=== PATIENT | female | born 1975 | race American Indian/Alaskan Native ===

== ENCOUNTER 2020-03-15 14:20 | Emergency (ER) | payer MEDICAID ==
[2020-03-15] MEDS ORDERED: ACETAMINOPHEN 325 MG TAB PO ONE (14:30)
--- NOTE | 2020-03-15 15:02 | Emergency Department Report ---
ED Fever HPI - General Chief Complaint: Fever Stated Complaint: HEADACHES, EAR PAIN, HIGH BP, COUGH Time Seen by Provider: 03/15/20 14:52 - History of Present Illness Initial Comments: Patient is a 44-year-old female who presents emergency room with complaints of URI symptoms that began 3 days ago. She has associated right temporal headache, right-sided ear pain, rhinorrhea, fever, dry cough. She states that Mucinex did help her symptoms. She denies any vomiting, diarrhea, shortness of breath, chest pain, sinus pressure. Past medical history of hypertension. No allergies to medications. Last menstrual cycle 02/28/2020. She denies any known sick contacts or recent travel. ED Review of Systems ROS: Stated complaint: HEADACHES, EAR PAIN, HIGH BP, COUGH Other details as noted in HPI Comment: All other systems reviewed and negative ED Past Medical Hx - Past Medical History Hx Hypertension: Yes - Surgical History Additional Surgical History: C SECTION X3 - Social History Smoking Status: Never Smoker Substance Use Type: None - Medications Home Medications: Home Medications Medication Instructions Recorded Confirmed Last Taken Type Albuterol Sulfate [Proventil Hfa] 6.7 gm IH TID PRN #1 hfa.aer.ad 03/15/20 Unknown Rx Butalb/Acetaminophen/Caffeine 1 cap PO Q8HR PRN #10 cap 03/15/20 Unknown Rx [Fioricet 50-300-40 mg CAP] Docusate Sodium [Colace] 100 mg PO BID #60 capsule 03/15/20 Unknown Rx Ferrous Sulfate [Ferrous Sulfate 324 mg PO BID 30 Days #60 tablet.dr 03/15/20 Unknown Rx 324 MG] predniSONE [Deltasone] 20 mg PO QDAY 5 Days #5 tab 03/15/20 Unknown Rx ED Physical Exam - General Limitations: No Limitations General appearance: alert, in no apparent distress - Head Head exam: Present: atraumatic, normocephalic - Eye Eye exam: Present: normal appearance - ENT ENT exam: Present: normal orophraynx, mucous membranes moist, TM's normal bilaterally, normal external ear exam, other (no sinus ttp of the bilateral maxillary or frontal sinuses) - Neck Neck exam: Present: normal inspection, full ROM. Absent: meningismus - Respiratory Respiratory exam: Present: normal lung sounds bilaterally. Absent: respiratory distress, wheezes, rales, rhonchi, stridor, chest wall tenderness, accessory muscle use, decreased breath sounds, prolonged expiratory - Cardiovascular Cardiovascular Exam: Present: regular rate, normal rhythm, normal heart sounds. Absent: systolic murmur, diastolic murmur, rubs, gallop - Neurological Exam Neurological exam: Present: alert, oriented X3 - Psychiatric Psychiatric exam: Present: normal affect, normal mood - Skin Skin exam: Present: warm, dry, intact ED Course Vital Signs 03/15/20 03/15/20 14:46 17:23 Temperature 102.3 F H 99.8 F H Pulse Rate 98 H 93 H Respiratory 20 20 Rate Blood Pressure 131/81 Blood Pressure 146/86 [Right] O2 Sat by Pulse 98 97 Oximetry ED Medical Decision Making - Lab Data Result diagrams: 03/15/20 15:26 03/15/20 15:26 Lab Results 03/15/20 03/15/20 03/15/20 Range/Units 15:26 15:26 15:26 WBC 4.4 L (4.5-11.0) K/mm3 RBC 4.21 (3.65-5.03) M/mm3 Hgb 7.3 L (10.1-14.3) gm/dl Hct 25.3 L (30.3-42.9) % MCV 60 L (79-97) fl MCH 17 L (28-32) pg MCHC 29 L (30-34) % RDW 21.2 H (13.2-15.2) % Plt Count 79 L (140-440) K/mm3 Lymph % (Auto) 23.6 (13.4-35.0) % [place] % (Auto) 14.4 H (0.0-7.3) % Eos % (Auto) 0.3 (0.0-4.3) % Baso % (Auto) 0.3 (0.0-1.8) % Lymph # (Auto) 1.0 L (1.2-5.4) K/mm3 [place] # (Auto) 0.6 (0.0-0.8) K/mm3 Eos # (Auto) 0.0 (0.0-0.4) K/mm3 Baso # (Auto) 0.0 (0.0-0.1) K/mm3 Seg Neutrophils % 61.4 (40.0-70.0) % Seg Neutrophils # 2.7 (1.8-7.7) K/mm3 Sodium 136 L (137-145) mmol/L Potassium 3.6 (3.6-5.0) mmol/L Chloride 104.6 (98-107) mmol/L Carbon Dioxide 23 (22-30) mmol/L Anion Gap 12 mmol/L BUN 6 L (7-17) mg/dL Creatinine 0.5 L (0.6-1.2) mg/dL Estimated GFR > 60 ml/min BUN/Creatinine Ratio 12 % Glucose 109 H (65-100) mg/dL Calcium 8.4 (8.4-10.2) mg/dL Total Bilirubin 0.20 (0.1-1.2) mg/dL AST 20 (5-40) units/L ALT 10 (7-56) units/L Alkaline Phosphatase 82 (35-129) units/L Total Protein 6.9 (6.3-8.2) g/dL Albumin 3.8 L (3.9-5) g/dL Albumin/Globulin Ratio 1.2 % HCG, Qual Negative (Negative) Vital Signs 03/15/20 03/15/20 14:46 17:23 Temperature 102.3 F H 99.8 F H Pulse Rate 98 H 93 H Respiratory 20 20 Rate Blood Pressure 131/81 Blood Pressure 146/86 [Right] O2 Sat by Pulse 98 97 Oximetry - Radiology Data Radiology results: report reviewed Ordering Physician: ORI NGUYEN Date of Service: 03/15/20 Procedure(s): XR chest routine 2V Accession Number(s): [id number] cc: ORI NGUYEN Fluoro Time In Minutes: CHEST 2 VIEWS INDICATION / CLINICAL INFORMATION: cough, fever. COMPARISON: None available. FINDINGS: SUPPORT DEVICES: None. HEART / MEDIASTINUM: No significant abnormality. LUNGS / PLEURA: No significant pulmonary or pleural abnormality. No pneumothorax. ADDITIONAL FINDINGS: No significant additional findings. IMPRESSION: 1. No acute findings. Signer Name: Micah Ng MD Signed: 03/15/2020 3:20 PM Workstation Name: [id number] Transcribed By: MYCHAL Dictated By: Micah Ng MD Electronically Authenticated By: Micah Ng MD Signed Date/Time: 03/15/20 1520 DD/ 1519 TD/TT: - Medical Decision Making Patient is a 44-year-old female who presents emergency room with complaints of URI symptoms that began 3 days ago. She has associated right temporal headache, right-sided ear pain, rhinorrhea, fever, dry cough. She states that Mucinex did help her symptoms. She denies any vomiting, diarrhea, shortness of breath, chest pain, sinus pressure. Past medical history of hypertension. No allergies to medications. Last menstrual cycle 02/28/2020. She denies any known sick contacts or recent travel. Vitals with fever, otherwise vitals are normal, patient given Tylenol and fever improved. Breath sounds are clear bilaterally, no wheezing, no rales, no rhonchi, normal oropharynx, normal TMs and canals, no sinus tenderness palpation, no meningeal signs. Labs are significant for pancytopenia, otherwise stable. CXR: 1. No acute findingsSpoke to Dr. Kev Billy, ER attending regarding pancytopenia, he advised to have patient follow- up with primary care doctor and advised to put patient on ferrous sulfate 325 twice daily and give the patient Colace, he also advised to place patient on oral steroids 20 mg daily for 5 days. advised pt Please take medication as prescribed. Please increase your fluid intake over the next several days. May take Tylenol as needed for fever or body aches. May take umvg-lqo-spijgfr cold symptom relief medication such as Mucinex or TheraFlu. Follow-up with a primary care doctor for reexamination. Return to emergency room immediately for any new or worsening symptoms including but not limited to difficulty breathing, shortness of breath, severe chest pain, unable to tolerate by mouth intake, etc. Please self quarantine for 10 days from the onset of your symptoms. Please do not go out in public. If you are around others at home please wear a mask. If you need to cough or sneeze please do so in a napkin and immediately throw it away and immediately wash your hands. Wash your hands frequently. Wipe everything down. Recommend for you to get COVID-19 testing, may have this done at primary care doctor, health department, [address] testing center. Please follow-up with a primary care doctor regarding your abnormal lab results (pancytopenia) - Differential Diagnosis PNA, sinusitis, pharyngitis, otitis, viral syndrome, COVID-19, URI Critical care attestation.: If time is entered above; I have spent that time in minutes in the direct care of this critically ill patient, excluding procedure time. ED Disposition Clinical Impression: Viral URI, Pancytopenia Disposition: DC- TO HOME OR SELFCARE Is pt being admited?: No Does the pt Need Aspirin: No Condition: Stable Instructions: Viral Respiratory Infection Additional Instructions: Please take medication as prescribed. Please increase your fluid intake over the next several days. May take Tylenol as needed for fever or body aches. May take geoc-zih-dwwggqf cold symptom relief medication such as Mucinex or TheraFlu. Follow-up with a primary care doctor for reexamination. Return to emergency room immediately for any new or worsening symptoms including but not limited to difficulty breathing, shortness of breath, severe chest pain, unable to tolerate by mouth intake, etc. Please self quarantine for 10 days from the onset of your symptoms. Please do not go out in public. If you are around others at home please wear a mask. If you need to cough or sneeze please do so in a napkin and immediately throw it away and immediately wash your hands. Wash your hands frequently. Wipe everything down. Recommend for you to get COVID- 19 testing, may have this done at primary care doctor, health department, [facility] testing center. Please follow-up with a primary care doctor regarding your abnormal lab results (pancytopenia) Prescriptions: Docusate Sodium [Colace] 100 mg PO BID #60 capsule predniSONE [Deltasone] 20 mg PO QDAY 5 Days #5 tab Ferrous Sulfate [Ferrous Sulfate 324 MG] 324 mg PO BID 30 Days #60 tablet.dr Hernandez/Acetaminophen/Caffeine [Fioricet 50-300-40 mg CAP] 1 cap PO Q8HR PRN #10 cap PRN Reason: headache Albuterol Sulfate [Proventil Hfa] 6.7 gm IH TID PRN #1 hfa.aer.ad PRN Reason: shortness of breath/cough Referrals: PRIMARY MD JUVE [Primary Care Provider] - 2-3 Days ISSAC BHAKTA MD [Staff Physician] - 2-3 Days [facility] [Outside] - 2-3 Days [facility] [Provider Group] - 2-3 Days Time of Disposition: 17:11 Print Language: YORUBA
--- NOTE | 2020-03-15 15:24 | XRay Report ---
CHEST 2 VIEWS INDICATION / CLINICAL INFORMATION: cough, fever. COMPARISON: None available. FINDINGS: SUPPORT DEVICES: None. HEART / MEDIASTINUM: No significant abnormality. LUNGS / PLEURA: No significant pulmonary or pleural abnormality. No pneumothorax. ADDITIONAL FINDINGS: No significant additional findings. IMPRESSION: 1. No acute findings. Signer Name: Micah Ng MD Signed: 03/15/2020 3:20 PM Workstation Name: [id number]
[2020-03-15 16:01] LABS: Basophils % (Auto) 0.3 % (0.0-1.8); Eosinophils % (Auto) 0.3 % (0.0-4.3); Lymphocytes % (Auto) 23.6 % (13.4-35.0); Mean Corpuscular HGB Conc 29 % (30-34); Monocytes # (Auto) 0.6 K/mm3 (0.0-0.8); Monocytes % (Auto) 14.4 % (0.0-7.3); Red Blood Count 4.21 M/mm3 (3.65-5.03)
[2020-03-15 16:02] LABS: Hematocrit 25.3 % (30.3-42.9); Hemoglobin 7.3 gm/dl (10.1-14.3); Mean Corpuscular Volume 60 fl (79-97); Red Cell Distribution Width 21.2 % (13.2-15.2)
[2020-03-15 16:13] LABS: Alanine Aminotransferase 10 units/L (7-56); Albumin 3.8 g/dL (3.9-5); Blood Urea Nitrogen 6 mg/dL (7-17); Calcium 8.4 mg/dL (8.4-10.2); Hemolysis Index 0
[2020-03-15 16:19] LABS: BUN/Creatinine Ratio 12
[2020-03-15 16:40] LABS: Platelet Count 79 K/mm3 (140-440)
[2020-03-15 17:24] VITALS: BP 131/81
== END 2020-03-15 17:26 | disposition home or self-care (01) ==
LOC: ED 14:20
DX: J06.9 Acute upper respiratory infection, unspecified (principal); B97.89 Other viral agents as the cause of diseases classified elsewhere; D61.818 Other pancytopenia; I10 Essential (primary) hypertension; Z98.890 Other specified postprocedural states; Z79.899 Other long term (current) drug therapy
CPT/HCPCS: 36415; 71046; 80053; 84703; 85025